=== PATIENT | female | born 1945 | race Caucasian/White ===

== ENCOUNTER 2017-10-26 08:52 | Day surgery (SDC) | payer OTHER ==
[2017-10-26] MEDS ORDERED: D5 LR 1000 ML 1,000 ML IV ONE ×2 (09:02→09:08)
[2017-10-26] MEDS ORDERED: NS 1000 ML 1,000 ML ONE (09:22)
[2017-10-26] MEDS ORDERED: DIPRIVAN VIAL 20 ML ONE (10:51)
[2017-10-26] MEDS ORDERED: FENTANYL INJ 100 mcg ONE (10:58)
[2017-10-26 11:42] VITALS: BP 120/60
== END 2017-10-26 11:33 | disposition home or self-care (01) ==
LOC: SURG1 08:52
PROVIDERS: ATTEND Internal Medicine Gastroenterology
PROC: 0DBP8ZX Excision of Rectum, Via Natural or Artificial Opening Endoscopic, Diagnostic (ICD-10-PCS; principal; 2017-10-26 10:30)
PROC: 0DBN8ZX Excision of Sigmoid Colon, Via Natural or Artificial Opening Endoscopic, Diagnostic (ICD-10-PCS; principal; 2017-10-26 10:30)
PROC: 0DJD8ZZ Inspection of Lower Intestinal Tract, Via Natural or Artificial Opening Endoscopic (ICD-10-PCS; principal; 2017-10-26 10:30)
DX: Z12.11 Encounter for screening for malignant neoplasm of colon (principal); K92.1 Melena; K63.5 Polyp of colon; K64.0 First degree hemorrhoids; D12.5 Benign neoplasm of sigmoid colon
CPT/HCPCS: 99100; A4217; J3010; J3490; J7120